=== PATIENT | female | born 1980 | race Caucasian/White ===

== ENCOUNTER 2021-10-02 12:31 | Emergency (ER) | payer OTHER ==
[~2021-10-02] VITALS: Ht 180.3 cm; Wt 70.8 kg
--- NOTE | 2021-10-02 12:56 | NUR ---
[id number]. NO SHOW.
[2021-10-02 13:29] VITALS: BP 155/97
--- NOTE | 2021-10-02 15:13 | NUR ---
strep swabbed at this time
[2021-10-02] MEDS ORDERED: IBUP-2213 PO (16:44)
[2021-10-02] MEDS ORDERED: ATA25 PO (16:44)
[2021-10-02] MEDS ORDERED: CEPH-588 PO (16:44)
[2021-10-02] MEDS ORDERED: PENICILLIN G BENZATHINE L-A 1.2 MU/2 ML SYR IM ONE (16:45)
[2021-10-02 17:08] VITALS: BP 145/75
--- NOTE | 2021-10-02 17:08 | NUR ---
Patient discharged with v/s stable. Written and verbal after care instructions given and explained. Patient alert, oriented and verbalized understanding of instructions. Ambulatory with steady gait. All questions addressed prior to discharge. ID band removed. Patient advised to follow up with PMD. Rx of atatarax hcl,keflex,ibu given. Patient educated on indication of medication including possible reaction and side effects. Opportunity to ask questions provided and answered.
--- NOTE | 2021-10-02 17:10 | NUR ---
CALLED [phone]. PT STATED SHE WANTS TO LEAVE. SHE IS AWARE OF BEING TAKE OF THE LIST TO BE SEEN.
== END 2021-10-02 17:10 | disposition home or self-care (01) ==
LOC: MED 12:31
DX: L03.116 Cellulitis of left lower limb (principal); L03.115 Cellulitis of right lower limb; J02.0 Streptococcal pharyngitis
CPT/HCPCS: 87081; 99283